=== PATIENT | female | born 1945 | race Caucasian/White ===

== ENCOUNTER 2021-07-19 14:04 | Outpatient (CLI) | payer MEDICARE | END 2021-07-19 23:59 | disposition home or self-care (01) | LOC: RAD 14:04 | PROVIDERS: ATTEND Psychiatry & Neurology Neurology | DX: R94.01 Abnormal electroencephalogram [EEG] (principal); R47.89 Other speech disturbances; R20.2 Paresthesia of skin | CPT/HCPCS: 95816 ==